=== PATIENT | male | born 1980 ===

== ENCOUNTER 2019-09-19 04:36 | Emergency (ER) | payer SELFPAY ==
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
[2019-09-19 09:12] VITALS: O2SAT 98
[2019-09-19 09:13] VITALS: BP 113/75; TEMP 98
--- NOTE | 2019-09-20 09:58 | RAD REPORT ---
EXAM DESCRIPTION: Head C Spine Mpr Wo Con CLINICAL HISTORY: Trauma/pain COMPARISON: None available TECHNIQUE: Axial CT of the head obtained from the skull apex to the skull base without contrast. Axi al CT images of the cervical spine obtained from the skull base through the thoracic inlet. Sagittal and coronal reformatted images available. FINDINGS: CT head: No acute intracranial hemorrhage identified. No mass, mass effect, shift of the midline, abnormal ext ra-axial fluid collection or CT evidence of acute ischemic change identified. The ventricular system is unremarkable. No acute abnormalities of the supratentorial white matter, basal ganglia, cerebell um, or brainstem. Opacities in the paranasal sinuses. Right orbital and maxillary sinus fractures incompletely visualiz ed on this study please see dedicated facial bone CT for further details. No skull fracture identifie d. Mild right proptosis. Left orbit and globe are unremarkable Cervical CT: Alignment of the cervical spine is maintained without evidence of subluxation. The atlantoaxial, at lantodental, and occipitoatlantal intervals are preserved. No fracture identified. Vertebral body h eight preserved. Prevertebral soft tissues are unremarkable. Intervertebral disc height preserved. Mild endplate spondylosis. Visualized skull base is intact. Visualized mastoid air cells and paranasal sinuses are well aerate d. Visualized thyroid is unremarkable. No cervical lymphadenopathy. No pneumothorax in the visualized lung apices. IMPRESSION: 1. No acute intracranial abnormality. 2. No acute fracture or subluxation of the cervical spine. 3. Incomplete visualization of right orbital and maxillary sinus fractures. Please see dedicated fac ial bone CT for further details. This exam was performed according to our departmental dose-optimization program, which includes autom ated exposure control, adjustment of the mA and/or kV according to patient size and/or use of iterati ve reconstruction technique. Electronically signed by: Yony Sandy 09/19/2019 5:50 AM CDT Due to temporary technical issues with the PACS/Fluency reporting system, reports are being signed by the in house radiologist without review as a courtesy to ensure prompt reporting. The interpreting r adiologist is fully responsible for the content of the report.
--- NOTE | 2019-09-20 09:58 | RAD REPORT ---
EXAM DESCRIPTION: Facial Bones W/ Mpr CLINICAL HISTORY: TRAUMA/pain COMPARISON: None available TECHNIQUE: Axial CT of the facial bone obtained without contrast. Coronal and sagittal reformatted i mages available. FINDINGS: Orbits: The left orbital dang are intact. Minimal displaced fracture of the right lateral orbital wa ll. Minimally displaced fracture of the right inferior orbital wall. No entrapment of the extraocular muscles. Intraorbital contents: Air within the inferior aspect of the orbit as well as the preseptal periorbit al subcutaneous soft tissues. No intraconal fat stranding. Left orbital contents are unremarkable. Th e globes are intact. Mild right proptosis. Nasal bones: Intact. Maxilla: The maxillary hard palate is intact. Comminuted fracture of the right lateral maxillary antr al wall. Nondisplaced fracture of the anterior maxillary antral wall. Left maxillary antral dang a re intact. Sinuses: Posttraumatic opacification of the right maxillary sinus. Minimal mucosal thickening of the right frontal sinus, ethmoid air cells, and left maxillary sinus. Zygomatic processes: Minimally displaced fracture of the right zygomatic process. Left zygomatic proc esses are intact. Pterygoid plates: Intact Mandible: Intact. No mandibular condylar dislocation. Skull base/cervical spine: Visualized portions of the skull base and cervical spine are intact. Visua lized mastoid air cells are well aerated. Subcutaneous soft tissues: Subcutaneous air and edema within the right facial and preseptal periorbit al subcutaneous soft tissues. Neck soft tissues: No definite abnormality involving the nasopharynx, oropharynx, or hypopharynx. Fos sa of Rosenmuller are clear. Parotid glands and submandibular glands are unremarkable. No cervical ly mphadenopathy. IMPRESSION: 1. Right zygomaticomaxillary complex fracture with fractures of the right lateral axillary antral wa ll, anterior maxillary antral wall, inferior orbital rim, and right zygomatic process. This exam was performed according to our departmental dose-optimization program, which includes autom ated exposure control, adjustment of the mA and/or kV according to patient size and/or use of iterati ve reconstruction technique. Electronically signed by: Yony Sandy 09/19/2019 5:58 AM CDT Due to temporary technical issues with the PACS/Fluency reporting system, reports are being signed by the in house radiologist without review as a courtesy to ensure prompt reporting. The interpreting r mavisogist is fully responsible for the content of the report.
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
== END 2019-09-19 08:38 | disposition home or self-care (01) ==
LOC: ER 04:36
DX: S02.40EA Zygomatic fracture, right side, initial encounter for closed fracture (principal); W10.9XXA Fall (on) (from) unspecified stairs and steps, initial encounter; Y93.9 Activity, unspecified; Y92.9 Unspecified place or not applicable
CPT/HCPCS: 70450; 70486; 72125; 76377; 99284; G0390